=== PATIENT | female | born 1945 | race Hispanic/Latino ===

== ENCOUNTER 2017-01-12 14:39 | Emergency (ER) | payer OTHER ==
[~2017-01-12] VITALS: Ht 154.9 cm; Wt 75.8 kg
--- NOTE | 2017-01-12 17:18 | ED GI/GU/ABDOMINAL COMPLAINT ---
History of Present Illness General Chief Complaint: General Adult Stated Complaint: PAIN EVERY WHERE Source: patient Exam Limitations: no limitations Vital Signs & Intake/Output Vital Signs & Intake/Output Vital Signs Date Time Temp Pulse Resp B/P Pulse O2 O2 Flow FiO2 Ox Delivery Rate 01/12 1903 97.0 62 16 141/63 95 Room Air 01/12 1445 98.8 81 16 155/82 98 Room Air Allergies Coded Allergies: Iodinated Contrast Media - Oral and (Intermediate, RASH 01/12/17) cinnamon (UNKNOWN 01/12/17) Triage Note: 71 Y/O FEMALE C/O PAIN TO R FLANK, R THIGH AND ACROSS LOWER ABDOMEN; ONSET 2 DAYS AGO AND INTERMITTENT SINCE ONSET. HAS BEEN TAKING OTC MEDS WITH NO RELIEF. PT DENIES N/V/D. REPORTS DECREASED APPETITE/PO INTAKE. STATES IT FEELS "WARM" WHEN SHE URINATES, "BURNING". DENIES NOTING HEMATURIA. AFEBRILE. URINE SAMPLE REQUESTED. Triage Nurses Notes Reviewed? yes ? N Is pt currently ? No HPI: This patient is a 71-year-old female who presented to the emergency department today for evaluation pain. She reported that 2 days ago she started to develop pain in her right thigh.region which radiates down her right leg on the posterior aspect and stops at the knee. She reported that she does have a history of sciatica and this feels similar. However, she also reported that 2 days ago she started developing pain in her right flank which radiates to her right lower abdomen. This patient is status post appendectomy. She also reported that one of her kidneys as, "smaller than the other." She denied a history of kidney stones. She reported burning with urination. She denied any urinary urgency or frequency. No blood in the urine noticed. The patient denied any nausea or vomiting. She reported tactile fevers, but no chills. She denied any constipation or diarrhea. No bowel or bladder incontinence. No saddle paresthesia. (SHANNAN WADDELL,JANESSA) Past History Travel History Traveled to [place] past 21 day No Medical History Any Pertinent Medical History? 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 No (JANESSA CAMPBELL PA-C) Review of Systems Review of Systems Constitutional: Reports: see HPI. EENTM: Reports: no symptoms. Respiratory: Reports: no symptoms. Cardiovascular: Reports: no symptoms. GI: Reports: see HPI. Genitourinary: Reports: see HPI. Musculoskeletal: Reports: see HPI. Skin: Reports: no symptoms. Neurological/Psychological: Reports: no symptoms. All Other Systems: Reviewed and Negative (JANESSA CAMPBELL PA-C) Physical Exam Physical Exam Gastrointestinal: normal bowel sounds, soft, no organomegaly, NONDISTENDED. tYMPANIC TO PERCUSSION THROUGHOUT ALL 4 QUADRANTS. tENDERNESS TO PALPATION IN THE RIGHT LOWER QUADRANT WITH NO REBOUND OR GUARDING.NO PERITONEAL SIGNS. nEGATIVE Lan SIGN. Comments: Well-developed well-nourished person in no acute distress HEENT: Normal EENT exam, moist mucous membranes Neck: Supple with no lymphadenopathy Back: Normal inspection Cardiovascular: Regular rate and rhythm with no murmurs, rubs, or gallops Respiratory: Chest nontender. No respiratory distress. Breath sounds clear to auscultation bilaterally Extremity: Normal and equal pulses Neuro: Alert oriented x3, motor sensory normal, cranial nerves II through XII grossly intact. Skin: No appreciable rash on exposed skin, skin is warm and dry. Psych: Mood and affect is normal Core Measures ACS in differential dx? Yes Severe Sepsis Present: No Septic Shock Present: No (JANESSA CAMPBELL PA-C) Progress Differential Diagnosis: AAA, AMI, appendicitis, biliary colic, bowel obstruction , colon cancer, cholecystitis, diverticulitis, gastritis, hepatitis, ischemic bowel, inflamm bowel dis, kidney stone, pancreatitis, PUD/GERD, perforated viscous, UTI/pyelo, SCIATICA Plan of Care: Orders Procedure Date/time Status LACTIC ACID 01/12 171 Complete COMPREHENSIVE METABOLIC PANEL 01/12 1717 Complete CBC WITHOUT DIFFERENTIAL 01/12 1717 Complete CULTURE,URINE 01/12 1449 Active URINALYSIS 01/12 1449 Complete Laboratory Tests 01/12/17 2017: Lactic Acid Cancelled 01/12/17 1820: Anion Gap 14, Estimated GFR 17 L, BUN/Creatinine Ratio 14.3, Glucose 87, Lactic Acid 0.8, Calcium 9.7, Total Bilirubin 0.7, AST 34, ALT 36, Alkaline Phosphatase 52, Total Protein 8.3 H, Albumin 4.3, Globulin 4.0, Albumin/Globulin Ratio 1.1, CBC w Diff NO MAN DIFF REQ, RBC 3.68 L, MCV 89.9, MCH 30.1, RDW 13.3, MPV 6.9 L, Gran % 57.9, Lymphocytes % 27.0, Monocytes % 8.5, Eosinophils % 5.7 H, Basophils % 0.9, Absolute Granulocytes 4.0, Absolute Lymphocytes 1.9, Absolute Monocytes 0.6, Absolute Eosinophils 0.4, Absolute Basophils 0.1, PUBS MCHC 33.4 01/12/17 1455: Urinalysis LIGHT H, Urine Color YEL, Urine Clarity CLEAR, Urine pH 6.0, Ur Specific [place] 1.020, Urine Protein 100 H, Urine Ketones NEG, Urine Nitrite NEG, Urine Bilirubin NEG, Urine Urobilinogen 0.2, Ur Leukocyte Esterase NEG, Ur Microscopic SEDIMENT EXAMINED, Urine RBC 1-3, Urine WBC 3-5 H, Ur Epithelial Cells FEW, Urine Bacteria RARE H, Urine Hemoglobin TRACE-INTACT, Urine Glucose NEG Microbiology 01/12 1455 URINE ROUT: Urine Culture - RECD Diagnostic Imaging: Viewed by Me: CT Scan. Discussed w/RAD: CT Scan. Radiology Impression: PATIENT: SHAKEEL NEVAREZ PRESENT AGE: 71 PATIENT ACCOUNT NO: [id number] : 45 LOCATION: [facility] ORDERING PHYSICIAN: JANESSA CAMPBELL PA-C SERVICE DATE: 01/12/17 EXAM TYPE: CAT - CT ABD & PELVIS W/O IV CONTRAS EXAMINATION: CT ABDOMEN AND PELVIS WITHOUT CONTRAST CLINICAL INFORMATION: Right flank pain and right lower abdominal pain. COMPARISON: Renal ultrasound of 12/11/2015 and 02/11/2010. Abdominal and pelvic CT scan of 11/16/2008 and 12/21/2007. TECHNIQUE: Multidetector volumetric imaging was performed from the superior aspect of the liver through the pubic symphysis. Sagittal and coronal reformatted images were obtained on the technologist's workstation. DLP: 446.80 mGy-cm FINDINGS: Evaluation of the solid viscera is limited by lack of intravenous contrast. LUNG BASES: The visualized lung bases are unremarkable. LIVER, GALLBLADDER, AND BILIARY TREE: The liver is normal in size, shape, and attenuation. No focal hepatic lesion or intrahepatic biliary ductal dilatation is present. The gallbladder is surgically absent. There is dilatation of the common bile duct measuring up to 1.3 cm, a stable finding compared to the previous CT. No filling defect is noted in the common bile duct. PANCREAS: Unremarkable. SPLEEN: Unremarkable. Subcentimeter splenule is noted in the splenic hilum. ADRENAL GLANDS: Unremarkable. KIDNEYS AND URETERS: Appearance of the kidneys is stable compared to the previous CT of 2008 with severe atrophy of the mid and lower left kidney as well as multifocal areas of significant parenchymal scarring and thickening in the right kidney. A 1.4 cm hypodense lesion in the right mid kidney represents a cyst by CT Hounsfield unit criteria as well as by prior ultrasound. No evidence of urinary tract calculi, hydroureteronephrosis or perinephric stranding. BLADDER: Significantly underdistended and, therefore, evaluation is limited; however no radiopaque calculi our seen. GASTROINTESTINAL TRACT: The small and large bowel is unremarkable. An appendix is not seen and there are surgical changes along the posterior wall of the cecum, likely related to prior appendicectomy. Correlate with the surgical history. ABDOMINAL WALL: No significant hernia is appreciated. PERITONEAL CAVITY: No evidence of free intraperitoneal air or fluid. No inflammatory changes or nodularity is seen in the omentum and mesentery. LYMPH NODES: No pathologically enlarged lymph nodes. VASCULAR: The aortoiliac vessels are normal in caliber. Minimal scattered calcific atherosclerosis of the aorta. PELVIC VISCERA: The uterus and adnexa are unremarkable. OSSEOUS STRUCTURES: No acute or suspicious osseous abnormality. Facet arthropathy is noted in the lower lumbar spine. Marginal osteophytes are noted in the lower thoracic spine. IMPRESSION: 1. No evidence of radiopaque urinary tract calculi or obstructive uropathy. 2. Stable appearance of the kidneys with a severely atrophic left kidney and multifocal areas of cortical thinning and parenchymal scarring in the right kidney. Stable right mid renal 1.4 cm cyst. 3. Status post cholecystectomy. Dilatation of the common bile duct is stable compared to the previous CT. No internal filling defect is noted. 4. No acute or other significant abnormality is identified to explain the patient's symptoms. DICTATED BY: JOHNATHAN JOINER MD DATE/TIME DICTATED:01/12/171818 ADMISSIONS SUPERVISOR:LAMONT DATE/TIME TRANSCRIBED:01/12/171818 CONFIDENTIAL, DO NOT COPY WITHOUT APPROPRIATE AUTHORIZATION. <Electronically signed in Other Vendor System> SIGNED BY: JOHNATHAN JOINER MD 01/12/17 2658 Initial ED EKG: none Comments: Discussed this patient with Dr. Palmer. No ureterolithiasis or hydronephrosis. No evidence of UTI. No increase in WBC count. Patient is reported relief of her symptoms. This patient is stable for discharge with Urology follow-up. (JANESSA CAMPBELL PA-C) Departure Departure Disposition: HOME OR SELF CARE Condition: Stable Clinical Impression Primary Impression: Flank pain Referrals: Makeda WILLETT MD (PCP/Family) Additional Instructions: Please follow-up with the urologist whose information has been provided to you in this packet. Follow-up with your primary care physician. Return for any worsening symptoms or concerns. Departure Forms: Customer Survey General Discharge Information (JANESSA CAMPBELL PA-C) PA/AUTOMATION AND CONTROLS SUPERVISOR Co-Sign Statement Statement: ED Attending supervision documentation- [X] I saw and evaluated the patient. I have also reviewed all the pertinent lab results and diagnostic results. I agree with the findings and the plan of care as documented in the PA's/AUTOMATION AND CONTROLS SUPERVISOR's documentation. [X] I have reviewed the ED Record and agree with the PA's/AUTOMATION AND CONTROLS SUPERVISOR's documentation. [] Additions or exceptions (if any) to the PAs/AUTOMATION AND CONTROLS SUPERVISOR's note and plan are summarized below: [] (FAVIO PORTILLO,DEMETRIUS Kirby)
[2017-01-12 18:39] LABS: ABSOLUTE BASOPHIL COUNT 0.1 /CUMM (0.0-0.2); ABSOLUTE EOSINOPHIL COUNT 0.4 /CUMM (0.0-0.7); ABSOLUTE LYMPH COUNT 1.9 /CUMM (1.2-3.4); ABSOLUTE MONOCYTE COUNT 0.6 /CUMM (0.10-0.60); BASOPHIL % 0.9 % (0.0-2.0); EOSINOPHIL % 5.7 % (0-5); GRANULOCYTE % 57.9 % (42.2-75.2); HEMATOCRIT 33.1 % (37-47); MEAN CORPUSCULAR HGB 30.1 PG (27.0-31.0); MEAN CORPUSCULAR HGB CONC 33.4 G/DL (33.0-37.0); MEAN CORPUSCULAR VOLUME 89.9 FL (81.0-99.0); MEAN PLATELET VOLUME 6.9 FL (7.4-10.4); PLATELET COUNT 387 /CUMM (130-400); RBC DISTRIBUTION WIDTH 13.3 % (11.5-14.5); RED BLOOD CELL CT 3.68 /CUMM (4.20-5.40); WHITE BLOOD CELL COUNT 6.9 /CUMM (4.8-10.8)
--- NOTE | 2017-01-12 18:51 | CT SCAN REPORT ---
EXAMINATION: CT ABDOMEN AND PELVIS WITHOUT CONTRAST CLINICAL INFORMATION: Right flank pain and right lower abdominal pain. COMPARISON: Renal ultrasound of 12/11/2015 and 02/11/2010. Abdominal and pelvic CT scan of 11/16/2008 and 12/21/2007. TECHNIQUE: Multidetector volumetric imaging was performed from the superior aspect of the liver through the pubic symphysis. Sagittal and coronal reformatted images were obtained on the technologist's workstation. DLP: 446.80 mGy-cm FINDINGS: Evaluation of the solid viscera is limited by lack of intravenous contrast. LUNG BASES: The visualized lung bases are unremarkable. LIVER, GALLBLADDER, AND BILIARY TREE: The liver is normal in size, shape, and attenuation. No focal hepatic lesion or intrahepatic biliary ductal dilatation is present. The gallbladder is surgically absent. There is dilatation of the common bile duct measuring up to 1.3 cm, a stable finding compared to the previous CT. No filling defect is noted in the common bile duct. PANCREAS: Unremarkable. SPLEEN: Unremarkable. Subcentimeter splenule is noted in the splenic hilum. ADRENAL GLANDS: Unremarkable. KIDNEYS AND URETERS: Appearance of the kidneys is stable compared to the previous CT of 2008 with severe atrophy of the mid and lower left kidney as well as multifocal areas of significant parenchymal scarring and thickening in the right kidney. A 1.4 cm hypodense lesion in the right mid kidney represents a cyst by CT Hounsfield unit criteria as well as by prior ultrasound. No evidence of urinary tract calculi, hydroureteronephrosis or perinephric stranding. BLADDER: Significantly underdistended and, therefore, evaluation is limited; however no radiopaque calculi our seen. GASTROINTESTINAL TRACT: The small and large bowel is unremarkable. An appendix is not seen and there are surgical changes along the posterior wall of the cecum, likely related to prior appendicectomy. Correlate with the surgical history. ABDOMINAL WALL: No significant hernia is appreciated. PERITONEAL CAVITY: No evidence of free intraperitoneal air or fluid. No inflammatory changes or nodularity is seen in the omentum and mesentery. LYMPH NODES: No pathologically enlarged lymph nodes. VASCULAR: The aortoiliac vessels are normal in caliber. Minimal scattered calcific atherosclerosis of the aorta. PELVIC VISCERA: The uterus and adnexa are unremarkable. OSSEOUS STRUCTURES: No acute or suspicious osseous abnormality. Facet arthropathy is noted in the lower lumbar spine. Marginal osteophytes are noted in the lower thoracic spine. IMPRESSION: 1. No evidence of radiopaque urinary tract calculi or obstructive uropathy. 2. Stable appearance of the kidneys with a severely atrophic left kidney and multifocal areas of cortical thinning and parenchymal scarring in the right kidney. Stable right mid renal 1.4 cm cyst. 3. Status post cholecystectomy. Dilatation of the common bile duct is stable compared to the previous CT. No internal filling defect is noted. 4. No acute or other significant abnormality is identified to explain the patient's symptoms.
[2017-01-12 19:03] VITALS: BP 141/63
== END 2017-01-12 19:59 ==
LOC: ERH 14:39
PROVIDERS: Physician Assistant
DX: R10.9 Unspecified abdominal pain (principal); R30.0 Dysuria; R50.9 Fever, unspecified
CPT/HCPCS: 74176; 81001; 87086; 96361; 96374; J1885